=== PATIENT | female | born 1945 | race African-American/Black ===

== ENCOUNTER 2017-09-09 07:06 | Inpatient (IN) | payer MEDICARE, OTHER ==
[2017-09-09 08:17] LABS: ADD MAN DIFF? NO
[2017-09-09] MEDS: LEVETIRACETAM 1000 MG (PMX) 100 ML IVPB (08:22)
[2017-09-09 08:27] LABS: WHITE BLOOD COUNT 10.9 10^3/ul (4.8-10.8)
[2017-09-09 08:27] LABS: BASOPHIL # 0.1 10^3/ul (0.0-0.1); BASOPHILS % 0.8 % (0.0-2.0); EOSINOPHILS # 0.1 10^3/ul (0.0-0.5); EOSINOPHILS % 1.2 % (0.0-7.0); HEMATOCRIT 43.5 % (37.0-47.0); HEMOGLOBIN 14.3 g/dl (12.0-16.0); LYMPHOCYTES # 2.7 10^3/ul (0.8-2.9); LYMPHOCYTES % 24.9 % (15.0-51.0); MEAN CORPUSCULAR HEMOGLOBIN 30.8 pg (29.0-33.0); MEAN CORPUSCULAR HGB CONC 32.9 g/dl (32.0-37.0); MEAN CORPUSCULAR VOLUME 93.5 fl (82.0-101.0); MONOCYTE # 0.5 10^3/ul (0.3-0.9); MONOCYTES % 4.8 % (0.0-11.0); NEUTROPHIL # 7.3 10^3/ul (1.6-7.5); NEUTROPHILS % 67.6 % (39.0-77.0); PLATELET COUNT 672 10^3/UL (140-415); RED BLOOD COUNT 4.65 10^6/ul (4.20-5.40); RED CELL DISTRIBUTION WIDTH 15.4 % (11.5-14.5)
[2017-09-09 08:36] LABS: ALANINE AMINOTRANSFERASE 29 IU/L (13-69); ALBUMIN 4.7 g/dl (3.3-4.9); ALKALINE PHOSPHATASE 89 IU/L (42-121); ANION GAP 15 (8-16); ASPARTATE AMINO TRANSFERASE 26 IU/L (15-46); BILIRUBIN,INDIRECT 0.2 mg/dl (0-1.1); BILIRUBIN,TOTAL 0.2 mg/dl (0.2-1.3); BLOOD UREA NITROGEN 15 mg/dl (7-20); CALCIUM 9.8 mg/dl (8.4-10.2); CARBON DIOXIDE 28 mmol/L (21-31); CHLORIDE 105 mmol/L (97-110); CREATININE 1.08 mg/dl (0.44-1.00); GLUCOSE 99 mg/dl (70-220); SODIUM 145 mmol/L (135-144); TOTAL PROTEIN 8.3 g/dl (6.1-8.1)
[2017-09-09 08:41] LABS: POTASSIUM 2.9 mmol/L (3.5-5.1)
[2017-09-09 08:48] LABS: TROPONIN-I 0.018 ng/ml (0.00-0.12)
[2017-09-09 09:08] LABS: PARTIAL THROMBOPLASTIN TIME 30.9 Sec (25.0-35.0)
[2017-09-09 09:33] LABS: INR 1.04; PROTIME 13.7 Sec (11.9-14.9); PT RATIO 1.1
[2017-09-09] MEDS: POTASSIUM CHLORIDE 100 ML IVPB ×2 (10:59→14:40)
[2017-09-09] MEDS ORDERED: ONDANSETRON 4 MG INJ IV ×2 (11:30→13:30)
[2017-09-09] MEDS ORDERED: ACETAMINOPHEN 325 MG TAB PO (11:30)
[2017-09-09] MEDS: SOD CHLORIDE 0.9% 1,000 ML IV (11:31)
[2017-09-09] MEDS ORDERED: SOD CHLORIDE 0.9% 1,000 ML IV (13:30)
[2017-09-09] MEDS ORDERED: LORAZEPAM 2 MG INJ IV (13:30)
[2017-09-09] MEDS ORDERED: hydrALAzine 20 MG INJ IV (15:30)
[2017-09-09] MEDS ORDERED: hydrALAzine 20 MG INJ (15:32)
[2017-09-09] MEDS: hydrALAzine 20 MG INJ IV (15:34)
[2017-09-09] MEDS: AMLODIPINE 10 MG TAB PO (15:38)
[2017-09-09] MEDS: DEXTROSE 5%-0.45% NACL 1,000 ML IV (15:40)
[2017-09-09] MEDS: FAMOTIDINE 20 MG TAB PO (20:22)
[2017-09-09] MEDS: METOPROLOL 25 MG TAB PO (20:22)
[2017-09-09] MEDS: LEVETIRACETAM 500 MG TAB PO (20:22)
[2017-09-09 21:34] LABS: ADD UMIC YES; UR ASCORBIC ACID NEGATIVE (NEGATIVE); UR BACTERIA FEW /HPF (NONE SEEN); UR BILIRUBIN (Dip) NEGATIVE (NEGATIVE); UR BLOOD (Dip) 1+ mg/dL (NEGATIVE); UR CLARITY CLEAR (CLEAR); UR COLOR YELLOW (YELLOW); UR GLUCOSE (Dip) NEGATIVE (NEGATIVE); UR KETONES (Dip) NEGATIVE (NEGATIVE); UR LEUKOCYTE ESTERASE (Dip) TRACE Leu/ul (NEGATIVE); UR NITRITE (Dip) NEGATIVE (NEGATIVE); UR RBC 2 /HPF (0-5); UR SPECIFIC GRAVITY (Dip) 1.011 (1.003-1.030); UR SQUAMOUS EPITHELIAL CELL FEW /HPF (FEW); UR TOTAL PROTEIN (Dip) NEGATIVE (NEGATIVE); UR UROBILINOGEN (Dip) NEGATIVE (NEGATIVE); UR WBC 7 /HPF (0-5)
[2017-09-09 21:54] LABS: OPIATES Negative (NEGATIVE)
[2017-09-09 21:56] LABS: AMPHETAMINE/METHAMPHETAMINE Negative (NEGATIVE); BARBITURATES Negative (NEGATIVE); BENZODIAZEPINES Negative (NEGATIVE); CANNABINOIDS Negative (NEGATIVE)
[2017-09-10 00:42] LABS: COCAINE Positive (NEGATIVE)
[2017-09-10] MEDS: ACETAMINOPHEN 325 MG TAB PO (01:12)
[2017-09-10] MEDS: DEXTROSE 5%-0.45% NACL 1,000 ML IV ×2 (02:00→05:54)
[2017-09-10] MEDS: FAMOTIDINE 20 MG TAB PO ×2 (07:40→20:51)
[2017-09-10] MEDS: METOPROLOL 25 MG TAB PO ×2 (07:40→20:51)
[2017-09-10] MEDS: LEVETIRACETAM 500 MG TAB PO ×2 (07:40→20:51)
[2017-09-10] MEDS: AMLODIPINE 10 MG TAB PO (07:40)
[2017-09-10] MEDS: ASPIRIN (EC) 81 MG TAB PO (08:10)
[2017-09-10 08:23] LABS: ADD MAN DIFF? NO
[2017-09-10 08:28] LABS: WHITE BLOOD COUNT 15.9 10^3/ul (4.8-10.8)
[2017-09-10 08:28] LABS: BASOPHIL # 0.1 10^3/ul (0.0-0.1); BASOPHILS % 0.5 % (0.0-2.0); EOSINOPHILS # 0.1 10^3/ul (0.0-0.5); EOSINOPHILS % 0.4 % (0.0-7.0); HEMATOCRIT 42.9 % (37.0-47.0); HEMOGLOBIN 14.2 g/dl (12.0-16.0); LYMPHOCYTES % 18.7 % (15.0-51.0); MEAN CORPUSCULAR HEMOGLOBIN 30.8 pg (29.0-33.0); MEAN CORPUSCULAR HGB CONC 33.1 g/dl (32.0-37.0); MEAN CORPUSCULAR VOLUME 93.1 fl (82.0-101.0); MEAN PLATELET VOLUME 11.2 fl (7.4-10.4); MONOCYTE # 0.7 10^3/ul (0.3-0.9); MONOCYTES % 4.5 % (0.0-11.0); NEUTROPHIL # 11.9 10^3/ul (1.6-7.5); NEUTROPHILS % 75.1 % (39.0-77.0); RED BLOOD COUNT 4.61 10^6/ul (4.20-5.40); RED CELL DISTRIBUTION WIDTH 15.4 % (11.5-14.5)
[2017-09-10 08:38] LABS: PLATELET COUNT 684 10^3/UL (140-415)
[2017-09-10 08:49] LABS: HEMOGLOBIN A1C 5.6 % (0-5.9)
[2017-09-10 09:09] LABS: ANION GAP 8 (8-16); BLOOD UREA NITROGEN 12 mg/dl (7-20); CALCIUM 9.3 mg/dl (8.4-10.2); CARBON DIOXIDE 33 mmol/L (21-31); CHLORIDE 103 mmol/L (97-110); CHOL/HDL RATIO 3.3 RATIO; CHOLESTEROL 159 mg/dl (100-200); CREATININE 0.89 mg/dl (0.44-1.00); GLUCOSE 93 mg/dl (70-220); HDL CHOLESTEROL 47 mg/dl (33-92); LDL CHOLESTEROL,CALCULATED 95 mg/dl; MAGNESIUM 1.9 mg/dl (1.7-2.5); SODIUM 141 mmol/L (135-144); TRIGLYCERIDES 83 mg/dl (0-149)
[2017-09-10 09:16] LABS: THYROID STIMULATING HORMONE 0.614 MIU/L (0.465-4.680)
[2017-09-10 13:55] LABS: HIV 1&2 ANTIBODY NEGATIVE (NEGATIVE)
[2017-09-10] MEDS: POTASSIUM CHLORIDE 20 MEQ POWDER FOR ORAL SOLN PO ×2 (14:31→17:24)
[2017-09-10] MEDS: ALPRAZOLAM 0.25 MG TAB PO (20:51)
[2017-09-11 06:42] LABS: ADD MAN DIFF? NO
[2017-09-11] MEDS: HYDROCODONE/APAP (10/325) TAB PO (06:48)
[2017-09-11 06:50] LABS: WHITE BLOOD COUNT 12.3 10^3/ul (4.8-10.8)
[2017-09-11 06:50] LABS: BASOPHIL # 0.1 10^3/ul (0.0-0.1); BASOPHILS % 0.6 % (0.0-2.0); EOSINOPHILS # 0.2 10^3/ul (0.0-0.5); EOSINOPHILS % 1.2 % (0.0-7.0); HEMOGLOBIN 13.4 g/dl (12.0-16.0); LYMPHOCYTES # 3.4 10^3/ul (0.8-2.9); LYMPHOCYTES % 27.6 % (15.0-51.0); MEAN CORPUSCULAR HEMOGLOBIN 30.8 pg (29.0-33.0); MEAN CORPUSCULAR HGB CONC 32.7 g/dl (32.0-37.0); MEAN CORPUSCULAR VOLUME 94.3 fl (82.0-101.0); MEAN PLATELET VOLUME 11.1 fl (7.4-10.4); MONOCYTE # 0.6 10^3/ul (0.3-0.9); NEUTROPHILS % 64.9 % (39.0-77.0); PLATELET COUNT 653 10^3/UL (140-415); RED BLOOD COUNT 4.35 10^6/ul (4.20-5.40); RED CELL DISTRIBUTION WIDTH 15.3 % (11.5-14.5)
[2017-09-11 07:18] LABS: ANION GAP 10 (8-16); BLOOD UREA NITROGEN 18 mg/dl (7-20); CALCIUM 9.2 mg/dl (8.4-10.2); CARBON DIOXIDE 29 mmol/L (21-31); CHLORIDE 110 mmol/L (97-110); CREATININE 0.93 mg/dl (0.44-1.00); GLUCOSE 93 mg/dl (70-220); POTASSIUM 3.8 mmol/L (3.5-5.1); SODIUM 145 mmol/L (135-144)
[2017-09-11] MEDS: ASPIRIN (EC) 81 MG TAB PO (08:21)
[2017-09-11] MEDS: LEVETIRACETAM 500 MG TAB PO ×2 (08:21→20:51)
[2017-09-11] MEDS: AMLODIPINE 10 MG TAB PO (08:22)
[2017-09-11] MEDS: FAMOTIDINE 20 MG TAB PO ×2 (08:22→20:51)
[2017-09-11] MEDS: METOPROLOL 25 MG TAB PO ×2 (08:24→20:51)
[2017-09-11] MEDS: ALPRAZOLAM 0.25 MG TAB PO ×2 (16:33→20:54)
[2017-09-12] MEDS: HYDROCODONE/APAP (10/325) TAB PO ×2 (00:47→08:12)
[2017-09-12 06:27] LABS: ADD MAN DIFF? NO
[2017-09-12 06:37] LABS: WHITE BLOOD COUNT 12.6 10^3/ul (4.8-10.8)
[2017-09-12 06:37] LABS: BASOPHIL # 0.1 10^3/ul (0.0-0.1); BASOPHILS % 0.8 % (0.0-2.0); EOSINOPHILS # 0.2 10^3/ul (0.0-0.5); EOSINOPHILS % 1.9 % (0.0-7.0); HEMATOCRIT 38.8 % (37.0-47.0); HEMOGLOBIN 12.7 g/dl (12.0-16.0); LYMPHOCYTES # 4.6 10^3/ul (0.8-2.9); LYMPHOCYTES % 36.4 % (15.0-51.0); MEAN CORPUSCULAR HEMOGLOBIN 30.9 pg (29.0-33.0); MEAN CORPUSCULAR HGB CONC 32.7 g/dl (32.0-37.0); MEAN CORPUSCULAR VOLUME 94.4 fl (82.0-101.0); MEAN PLATELET VOLUME 11.5 fl (7.4-10.4); MONOCYTE # 0.5 10^3/ul (0.3-0.9); MONOCYTES % 4.3 % (0.0-11.0); NEUTROPHIL # 7.1 10^3/ul (1.6-7.5); PLATELET COUNT 632 10^3/UL (140-415); RED BLOOD COUNT 4.11 10^6/ul (4.20-5.40); RED CELL DISTRIBUTION WIDTH 15.7 % (11.5-14.5)
[2017-09-12 06:57] LABS: ANION GAP 15 (8-16); BLOOD UREA NITROGEN 25 mg/dl (7-20); CALCIUM 9.1 mg/dl (8.4-10.2); CARBON DIOXIDE 28 mmol/L (21-31); CHLORIDE 107 mmol/L (97-110); CREATININE 0.92 mg/dl (0.44-1.00); GLUCOSE 82 mg/dl (70-220); POTASSIUM 3.6 mmol/L (3.5-5.1); SODIUM 146 mmol/L (135-144)
[2017-09-12] MEDS: ASPIRIN (EC) 81 MG TAB PO (08:10)
[2017-09-12] MEDS: LEVETIRACETAM 500 MG TAB PO ×2 (08:10→20:49)
[2017-09-12] MEDS: METOPROLOL 25 MG TAB PO ×2 (08:11→20:49)
[2017-09-12] MEDS: FAMOTIDINE 20 MG TAB PO ×2 (08:11→20:50)
[2017-09-12] MEDS: AMLODIPINE 10 MG TAB PO (08:11)
[2017-09-12] MEDS: ATORVASTATIN 40 MG TAB PO (20:48)
[2017-09-12] MEDS: ALPRAZOLAM 0.25 MG TAB PO (20:50)
[2017-09-13] MEDS: HYDROCODONE/APAP (10/325) TAB PO (05:32)
[2017-09-13] MEDS: METOPROLOL 25 MG TAB PO ×2 (08:29→21:15)
[2017-09-13] MEDS: AMLODIPINE 10 MG TAB PO (08:29)
[2017-09-13] MEDS: LEVETIRACETAM 500 MG TAB PO ×2 (08:30→21:14)
[2017-09-13] MEDS: ASPIRIN (EC) 81 MG TAB PO (08:30)
[2017-09-13] MEDS: FAMOTIDINE 20 MG TAB PO ×2 (08:30→21:14)
[2017-09-13] MEDS ORDERED: ALPRAZOLAM 0.25 MG TAB PO (13:00)
[2017-09-13] MEDS: ATORVASTATIN 40 MG TAB PO (21:14)
[2017-09-13] MEDS: ALPRAZOLAM 0.25 MG TAB PO (21:15)
[2017-09-13] MEDS: ZOLPIDEM 5 MG TAB PO (22:48)
[2017-09-14 06:03] LABS: ADD MAN DIFF? NO
[2017-09-14 06:14] LABS: BASOPHIL # 0.1 10^3/ul (0.0-0.1); BASOPHILS % 0.9 % (0.0-2.0); EOSINOPHILS # 0.3 10^3/ul (0.0-0.5); EOSINOPHILS % 3.1 % (0.0-7.0); HEMATOCRIT 42.2 % (37.0-47.0); HEMOGLOBIN 13.8 g/dl (12.0-16.0); LYMPHOCYTES # 3.2 10^3/ul (0.8-2.9); LYMPHOCYTES % 28.6 % (15.0-51.0); MEAN CORPUSCULAR HEMOGLOBIN 30.5 pg (29.0-33.0); MEAN CORPUSCULAR HGB CONC 32.7 g/dl (32.0-37.0); MEAN CORPUSCULAR VOLUME 93.4 fl (82.0-101.0); MEAN PLATELET VOLUME 11.4 fl (7.4-10.4); MONOCYTE # 0.5 10^3/ul (0.3-0.9); MONOCYTES % 4.1 % (0.0-11.0); NEUTROPHILS % 62.7 % (39.0-77.0); RED BLOOD COUNT 4.52 10^6/ul (4.20-5.40); RED CELL DISTRIBUTION WIDTH 15.3 % (11.5-14.5)
[2017-09-14 06:14] LABS: WHITE BLOOD COUNT 11.1 10^3/ul (4.8-10.8)
[2017-09-14 06:38] LABS: ANION GAP 12 (8-16); BLOOD UREA NITROGEN 24 mg/dl (7-20); CALCIUM 9.6 mg/dl (8.4-10.2); CARBON DIOXIDE 30 mmol/L (21-31); CHLORIDE 107 mmol/L (97-110); GLUCOSE 89 mg/dl (70-220); POTASSIUM 4.1 mmol/L (3.5-5.1); SODIUM 145 mmol/L (135-144)
[2017-09-14 07:21] LABS: PLATELET COUNT 833 10^3/UL (140-415)
[2017-09-14] MEDS: FAMOTIDINE 20 MG TAB PO ×2 (09:06→20:35)
[2017-09-14] MEDS: LEVETIRACETAM 500 MG TAB PO ×2 (09:06→20:35)
[2017-09-14] MEDS: ASPIRIN (EC) 81 MG TAB PO (09:06)
[2017-09-14] MEDS: AMLODIPINE 10 MG TAB PO (09:06)
[2017-09-14] MEDS: METOPROLOL 25 MG TAB PO ×2 (09:07→20:35)
[2017-09-14] MEDS: ALPRAZOLAM 0.25 MG TAB PO ×2 (09:07→21:13)
[2017-09-14] MEDS: HYDROCODONE/APAP (10/325) TAB PO (10:46)
[2017-09-14] MEDS: ATORVASTATIN 40 MG TAB PO (20:35)
[2017-09-14] MEDS: ZOLPIDEM 5 MG TAB PO (21:45)
[2017-09-15 06:09] LABS: ADD MAN DIFF? NO
[2017-09-15 06:17] LABS: BASOPHIL # 0.1 10^3/ul (0.0-0.1); BASOPHILS % 0.9 % (0.0-2.0); EOSINOPHILS # 0.3 10^3/ul (0.0-0.5); EOSINOPHILS % 2.7 % (0.0-7.0); HEMATOCRIT 41.5 % (37.0-47.0); HEMOGLOBIN 13.6 g/dl (12.0-16.0); LYMPHOCYTES # 3.9 10^3/ul (0.8-2.9); LYMPHOCYTES % 34.3 % (15.0-51.0); MEAN CORPUSCULAR HEMOGLOBIN 30.8 pg (29.0-33.0); MEAN CORPUSCULAR HGB CONC 32.8 g/dl (32.0-37.0); MEAN CORPUSCULAR VOLUME 94.1 fl (82.0-101.0); MEAN PLATELET VOLUME 11.1 fl (7.4-10.4); MONOCYTE # 0.4 10^3/ul (0.3-0.9); MONOCYTES % 3.9 % (0.0-11.0); NEUTROPHIL # 6.5 10^3/ul (1.6-7.5); NEUTROPHILS % 57.5 % (39.0-77.0); PLATELET COUNT 787 10^3/UL (140-415); RED BLOOD COUNT 4.41 10^6/ul (4.20-5.40); RED CELL DISTRIBUTION WIDTH 15.6 % (11.5-14.5)
[2017-09-15 06:17] LABS: WHITE BLOOD COUNT 11.3 10^3/ul (4.8-10.8)
[2017-09-15] MEDS: HYDROCODONE/APAP (10/325) TAB PO ×2 (06:22→15:10)
[2017-09-15 07:06] LABS: ANION GAP 13 (8-16); BLOOD UREA NITROGEN 29 mg/dl (7-20); CALCIUM 9.8 mg/dl (8.4-10.2); CARBON DIOXIDE 31 mmol/L (21-31); CHLORIDE 106 mmol/L (97-110); CREATININE 0.96 mg/dl (0.44-1.00); GLUCOSE 96 mg/dl (70-220); MAGNESIUM 2.1 mg/dl (1.7-2.5); PHOSPHORUS 3.8 mg/dl (2.5-4.9); POTASSIUM 4.5 mmol/L (3.5-5.1); SODIUM 145 mmol/L (135-144)
[2017-09-15] MEDS: LEVETIRACETAM 500 MG TAB PO ×2 (08:56→22:14)
[2017-09-15] MEDS: AMLODIPINE 10 MG TAB PO (08:56)
[2017-09-15] MEDS: FAMOTIDINE 20 MG TAB PO ×2 (08:57→22:10)
[2017-09-15] MEDS: ASPIRIN (EC) 81 MG TAB PO (08:57)
[2017-09-15] MEDS: METOPROLOL 25 MG TAB PO ×2 (08:57→22:14)
[2017-09-15] MEDS: ALPRAZOLAM 0.25 MG TAB PO ×2 (08:59→22:14)
[2017-09-15] MEDS: ATORVASTATIN 40 MG TAB PO (22:10)
[2017-09-15] MEDS: ZOLPIDEM 5 MG TAB PO (22:14)
[2017-09-16] MEDS: AMLODIPINE 10 MG TAB PO (08:30)
[2017-09-16] MEDS: LEVETIRACETAM 500 MG TAB PO ×2 (08:30→20:40)
[2017-09-16] MEDS: METOPROLOL 25 MG TAB PO ×2 (08:30→20:45)
[2017-09-16] MEDS: FAMOTIDINE 20 MG TAB PO ×2 (08:30→20:40)
[2017-09-16] MEDS: ALPRAZOLAM 0.25 MG TAB PO (08:33)
[2017-09-16] MEDS: HYDROCODONE/APAP (10/325) TAB PO ×2 (08:33→15:09)
[2017-09-16] MEDS: ASPIRIN (EC) 81 MG TAB PO (09:10)
[2017-09-16] MEDS: SOD CHLORIDE 0.45% 1,000 ML IV (09:58)
[2017-09-16 11:32] LABS: ADD UMIC YES; UR ASCORBIC ACID 40 mg/dL (NEGATIVE); UR BACTERIA FEW /HPF (NONE SEEN); UR BILIRUBIN (Dip) NEGATIVE (NEGATIVE); UR BLOOD (Dip) NEGATIVE (NEGATIVE); UR CLARITY CLOUDY (CLEAR); UR COLOR YELLOW (YELLOW); UR GLUCOSE (Dip) NEGATIVE (NEGATIVE); UR KETONES (Dip) NEGATIVE (NEGATIVE); UR LEUKOCYTE ESTERASE (Dip) 2+ Leu/ul (NEGATIVE); UR MUCUS FEW /HPF (NONE SEEN); UR NITRITE (Dip) NEGATIVE (NEGATIVE); UR RBC 4 /HPF (0-5); UR SQUAMOUS EPITHELIAL CELL MODERATE /HPF (FEW); UR TOTAL PROTEIN (Dip) NEGATIVE (NEGATIVE); UR UROBILINOGEN (Dip) NEGATIVE (NEGATIVE); UR WBC 132 /HPF (0-5)
[2017-09-16] MEDS: ATORVASTATIN 40 MG TAB PO (20:40)
[2017-09-16] MEDS: ZOLPIDEM 5 MG TAB PO (20:42)
[2017-09-17] MEDS: SOD CHLORIDE 0.45% 1,000 ML IV (02:35)
[2017-09-17 05:48] LABS: ADD MAN DIFF? NO
[2017-09-17 06:00] LABS: BASOPHIL # 0.1 10^3/ul (0.0-0.1); BASOPHILS % 0.9 % (0.0-2.0); EOSINOPHILS # 0.4 10^3/ul (0.0-0.5); EOSINOPHILS % 3.5 % (0.0-7.0); HEMATOCRIT 39.1 % (37.0-47.0); HEMOGLOBIN 12.9 g/dl (12.0-16.0); LYMPHOCYTES # 3.2 10^3/ul (0.8-2.9); LYMPHOCYTES % 32.4 % (15.0-51.0); MEAN PLATELET VOLUME 11.3 fl (7.4-10.4); MONOCYTE # 0.5 10^3/ul (0.3-0.9); MONOCYTES % 5.2 % (0.0-11.0); NEUTROPHIL # 5.7 10^3/ul (1.6-7.5); NEUTROPHILS % 57.3 % (39.0-77.0); PLATELET COUNT 799 10^3/UL (140-415); RED BLOOD COUNT 4.16 10^6/ul (4.20-5.40); RED CELL DISTRIBUTION WIDTH 15.9 % (11.5-14.5)
[2017-09-17 06:20] LABS: ANION GAP 11 (8-16); BLOOD UREA NITROGEN 29 mg/dl (7-20); CALCIUM 9.9 mg/dl (8.4-10.2); CARBON DIOXIDE 30 mmol/L (21-31); CHLORIDE 105 mmol/L (97-110); CREATININE 1.02 mg/dl (0.44-1.00); GLUCOSE 93 mg/dl (70-220); MAGNESIUM 2.1 mg/dl (1.7-2.5); PHOSPHORUS 4.1 mg/dl (2.5-4.9); POTASSIUM 4.4 mmol/L (3.5-5.1); SODIUM 142 mmol/L (135-144)
[2017-09-17] MEDS: ALPRAZOLAM 0.25 MG TAB PO (08:11)
[2017-09-17] MEDS: ASPIRIN (EC) 81 MG TAB PO (08:12)
[2017-09-17] MEDS: LEVETIRACETAM 500 MG TAB PO (08:12)
[2017-09-17] MEDS: AMLODIPINE 10 MG TAB PO (08:12)
[2017-09-17] MEDS: HYDROCODONE/APAP (10/325) TAB PO (08:12)
[2017-09-17] MEDS: METOPROLOL 25 MG TAB PO (08:13)
[2017-09-17] MEDS: FAMOTIDINE 20 MG TAB PO (08:13)
== END 2017-09-17 13:15 | disposition home health service (06) | DRG 100 ==
LOC: E/R 07:06 → MS2 09-13 19:18 → TEL 11:15
DX: R56.9 Unspecified convulsions (principal); G93.49 Other encephalopathy; I65.22 Occlusion and stenosis of left carotid artery; D72.829 Elevated white blood cell count, unspecified; E78.5 Hyperlipidemia, unspecified; F14.10 Cocaine abuse, uncomplicated; F17.200 Nicotine dependence, unspecified, uncomplicated; F41.9 Anxiety disorder, unspecified; I10 Essential (primary) hypertension; I25.10 Atherosclerotic heart disease of native coronary artery without angina pectoris; G89.29 Other chronic pain; M54.9 Dorsalgia, unspecified; N28.9 Disorder of kidney and ureter, unspecified; R94.31 Abnormal electrocardiogram [ECG] [EKG]; R93.1 Abnormal findings on diagnostic imaging of heart and coronary circulation; Z86.73 Personal history of transient ischemic attack (TIA), and cerebral infarction without residual deficits
CPT/HCPCS: 36415; 70450; 70553; 71045; 80048; 80053; 80061; 80069; 80307; 81001; 83036; 83735; 84100; 84443; 84484; 85025; 85610; 85730; 86703; 87040; 93306; 93880; 95819; 96374; 97110; 97116; 97163; 97167; 97530; 99285-25